=== PATIENT | male | born 1960 | race Caucasian/White ===

== ENCOUNTER 2017-09-28 08:56 | Emergency (ER) | payer SELFPAY ==
[~2017-09-28] VITALS: Ht 162.6 cm; Wt 59.0 kg
[2017-09-28 09:01] VITALS: BP 142/93; Ht 162.6 cm; Wt 59.0 kg
[2017-09-28 09:24] LABS: microscopic required? NO
[2017-09-28 09:45] LABS: AMPHETAMINE QUAL UR NONE DETECTED (NEG <=1000)
[2017-09-28 09:51] LABS: urine erythrocyte NEGATIVE (NEGATIVE)
== END 2017-09-28 09:48 | disposition left against medical advice (07) ==
LOC: ED 08:56
PROVIDERS: Emergency Medicine
DX: Z00.8 Encounter for other general examination (principal); F17.210 Nicotine dependence, cigarettes, uncomplicated; Z71.6 Tobacco abuse counseling
CPT/HCPCS: 83880; 99406; G0480

== ENCOUNTER 2018-08-24 15:11 | Emergency (ER) | payer SELFPAY ==
[~2018-08-24] VITALS: Ht 167.6 cm; Wt 57.6 kg
[2018-08-24 15:27] VITALS: Ht 167.6 cm; Wt 57.6 kg
[2018-08-24 18:19] VITALS: BP 113/70
== END 2018-08-24 18:19 | disposition home or self-care (01) ==
LOC: ED 15:11
DX: R07.81 Pleurodynia (principal); F20.9 Schizophrenia, unspecified; M25.531 Pain in right wrist; F17.210 Nicotine dependence, cigarettes, uncomplicated